=== PATIENT | male | born 1995 | race Caucasian/White ===

== ENCOUNTER 2018-05-09 16:27 | Emergency (ER) | payer BC, MEDICAID ==
[~2018-05-09] VITALS: Ht 177.8 cm; Wt 83.9 kg
[2018-05-09 16:31] VITALS: BP_SYST 144
[2018-05-09 18:00] VITALS: BP_SYST 144
== END 2018-05-09 18:00 | disposition home or self-care (01) ==
LOC: SED 16:27
DX: S39.012A Strain of muscle, fascia and tendon of lower back, initial encounter (principal); X58.XXXA Exposure to other specified factors, initial encounter; Y93.89 Activity, other specified; Y92.89 Other specified places as the place of occurrence of the external cause; Y99.8 Other external cause status
CPT/HCPCS: 99283

== ENCOUNTER 2018-11-24 17:45 | Emergency (ER) | payer BC, MEDICAID ==
[~2018-11-24] VITALS: Ht 177.8 cm; Wt 81.6 kg
[2018-11-24 17:55] VITALS: BP_SYST 123
[2018-11-24] MEDS ORDERED: KETOROLAC TROMETHAMINE 60 MG/2 ML VIAL IM ONE (18:15)
[2018-11-24 18:53] VITALS: BP_SYST 124
== END 2018-11-24 18:55 | disposition home or self-care (01) ==
LOC: SED 17:45
DX: S39.012A Strain of muscle, fascia and tendon of lower back, initial encounter (principal); R03.0 Elevated blood-pressure reading, without diagnosis of hypertension; W18.40XA Slipping, tripping and stumbling without falling, unspecified, initial encounter; Y93.89 Activity, other specified; Y92.89 Other specified places as the place of occurrence of the external cause; Y99.8 Other external cause status
CPT/HCPCS: 96372; 99283; J1885

== ENCOUNTER 2019-06-08 09:46 | Emergency (ER) | payer BC ==
[~2019-06-08] VITALS: Ht 177.8 cm; Wt 81.6 kg
[2019-06-08] MEDS ORDERED: TETRACAINE HCL/PF 0.5% OPHTHALMIC DROPS 4 ML OP ONE ×2 (09:47→10:45)
[2019-06-08] MEDS ORDERED: FLUORESCEIN SODIUM 1 MG OPHTHALMIC STRIP OP ONE (09:47)
[2019-06-08 09:52] VITALS: BP_SYST 144
--- NOTE | 2019-06-08 09:57 | NUR ---
Patient triaged and placed in waiting room. VSS and patient appears in no acute distress at this time. Awaiting available bed, and MD notified of need for MSE.
--- NOTE | 2019-06-08 09:58 | NUR ---
Patient is awake, alert, and oriented x4. Patient reports he was laying in bed last night and felt something go into his left eye. Patient has been flushing his eye with no relief.
--- NOTE | 2019-06-08 10:28 | NUR ---
ER Dr. Campos at bedside examining patient.
[2019-06-08] MEDS ORDERED: IPRATROPIUM/ALBUTEROL SULFATE 3 ML AMPUL.NEB (DUONEB) INH ONE (10:45)
[2019-06-08 11:35] VITALS: BP_SYST 154
--- NOTE | 2019-06-08 11:35 | NUR ---
Patient given written and verbal discharge instructions and verbalizes understanding. ER MD discussed with patient the results and treatment provided. Patient in stable condition. ID arm band removed. Rx of garamycin & motrin given. Patient educated on pain management and to follow up with PMD. Pain Scale 2/10 tolerable for patient. Opportunity for questions provided and answered. Medication side effect fact sheet provided.
== END 2019-06-08 11:35 | disposition home or self-care (01) ==
LOC: SED 09:46
DX: S05.02XA Injury of conjunctiva and corneal abrasion without foreign body, left eye, initial encounter (principal); J45.909 Unspecified asthma, uncomplicated; X58.XXXA Exposure to other specified factors, initial encounter; Y93.89 Activity, other specified; Y92.89 Other specified places as the place of occurrence of the external cause; Y99.8 Other external cause status
CPT/HCPCS: 94640; 99283; J7620

== ENCOUNTER 2019-08-28 02:38 | Emergency (ER) | payer BC ==
[~2019-08-28] VITALS: Ht 177.8 cm; Wt 81.6 kg
[2019-08-28 02:45] VITALS: BP_SYST 140
[2019-08-28] MEDS ORDERED: LIDOCAINE/EPI 1% 1:100000 20 ML VIAL INJ ONE (03:00)
[2019-08-28] MEDS ORDERED: LIDOCAINE 4% TOPICAL 50 ML BOTTLE MM ONE (03:00)
[2019-08-28] MEDS ORDERED: BACITRACIN 1 GM OINT TP ONE (03:00)
[2019-08-28 03:32] VITALS: BP_SYST 132
== END 2019-08-28 03:32 | disposition home or self-care (01) ==
LOC: SED 02:38
DX: S01.01XA Laceration without foreign body of scalp, initial encounter (principal); W22.8XXA Striking against or struck by other objects, initial encounter; Y93.89 Activity, other specified; Y92.89 Other specified places as the place of occurrence of the external cause; Y99.8 Other external cause status; I10 Essential (primary) hypertension
CPT/HCPCS: 99282

== ENCOUNTER 2019-09-26 19:42 | Emergency (ER) | payer BC ==
[~2019-09-26] VITALS: Ht 177.8 cm; Wt 81.6 kg
[2019-09-26 19:56] VITALS: BP_SYST 131
--- NOTE | 2019-09-26 19:56 | NUR ---
Patient to ER bed 08 to gown for evaluation. Side rails up. Report given to LOURDES Reddy
--- NOTE | 2019-09-26 20:15 | NUR ---
LARGE HEMATOMA TO LT KNEE AND ANKLE, PAIN TO GROIN, DENIES HEAD INJURY OF LOC. PT ARRIVES AMBULATORY, RESP UNLABORED, SKIN WARM AND DRY, DENIES CP/SOB
--- NOTE | 2019-09-26 20:45 | NUR ---
DR CALDERON IN TO ASSESS. PT CASLM, ALERT, COOPERATIVE
[2019-09-26] MEDS ORDERED: ceFAZolin SODIUM 1 GM VIAL IM ONE (21:00)
--- NOTE | 2019-09-26 21:21 | NUR ---
Patient given written and verbal discharge instructions and verbalizes understanding. ER MD discussed with patient the results and treatment provided. Patient in stable condition. ID arm band removed. Rx of KEFLEX given. Patient educated on pain management and to follow up with PMD. Pain Scale 1/10. Opportunity for questions provided and answered. Medication side effect fact sheet provided.
[2019-09-26 21:33] VITALS: BP_SYST 124
== END 2019-09-26 21:21 | disposition home or self-care (01) ==
LOC: SED 19:42
DX: L03.116 Cellulitis of left lower limb (principal)
CPT/HCPCS: 96372; 99283; J0690

== ENCOUNTER 2021-11-30 10:09 | Emergency (ER) | payer BC, OTHER ==
[~2021-11-30] VITALS: Ht 177.8 cm; Wt 90.7 kg
[2021-11-30 10:10] VITALS: BP_SYST 148
[2021-11-30] MEDS ORDERED: DOCU-144 PO (10:29)
[2021-11-30] MEDS ORDERED: ANURH RC (10:29)
== END 2021-11-30 10:40 | disposition home or self-care (01) ==
LOC: SED 10:09
DX: K64.8 Other hemorrhoids (principal); K62.89 Other specified diseases of anus and rectum; Z79.899 Other long term (current) drug therapy
CPT/HCPCS: 99283

== ENCOUNTER 2023-09-18 07:25 | Emergency (ER) | payer OTHER ==
[~2023-09-18] VITALS: Ht 177.8 cm; Wt 90.7 kg
[~2023-09-18 07:25] MED LIST: ANURH RC; DOCU-144 PO
[2023-09-18 07:32] VITALS: BP_SYST 129; PULSE 68; RESP 16; TEMP 97.5; O2SAT 97
[2023-09-18] MEDS ORDERED: FLUORESCEIN SODIUM 1 MG OPHTHALMIC STRIP OP ONE (07:45)
[2023-09-18] MEDS: FLUORESCEIN SODIUM 1 MG OPHTHALMIC STRIP OP ONE (07:46)
[2023-09-18] MEDS ORDERED: POLYTRIM LEFT EYE (07:56)
[2023-09-18 08:01] VITALS: BP_SYST 129; PULSE 68; RESP 16; TEMP 97.5; O2SAT 97
== END 2023-09-18 08:01 | disposition home or self-care (01) ==
LOC: SED 07:25
DX: H10.9 Unspecified conjunctivitis (principal); Z79.899 Other long term (current) drug therapy
CPT/HCPCS: 99283